=== PATIENT | female | born 2005 | race Caucasian/White ===

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

== ENCOUNTER 2025-03-09 16:46 | Emergency (ER) | payer OTHER, SELFPAY ==
[2025-03-09 16:46] VITALS: BP 137/83; PULSE 88; RESP 16; TEMP 36.8; O2SAT 98; BMI 31.6
--- NOTE | 2025-03-09 17:05 | US_ITS ---
PROCEDURE: US/Transvaginal Non-
--- NOTE | 2025-03-09 17:29 | EX.ED.DYSGE1 ---
HPI History of Present Illness Chief Complaint: Abd Pain Narrative Narrative: Chief complaint and HPI: 20-year-old female with past medical history of ovarian cyst, anxiety, depression presents for evaluation of right lower quadrant abdominal pain. Onset of symptoms for 2 weeks. Describes it as dull and throbbing. Denies any fever, chills, URI symptoms, shortness of breath, chest pain, abdominal pain, nausea, vomiting, dysuria, vaginal bleeding, diarrhea, constipation. She has a Nexplanon. States she is sexually active. Last intercourse a week ago. She has irregular periods however her last period was 2 weeks ago. Denies any concern for STI. Review of systems: See HPI Medications: As listed on the chart Allergies: As listed on the chart PFSH: Per chart Vital signs: As listed on the chart. Reviewed. Physical exam: Gen: A&O x3, NAD Head: Normocephalic, atraumatic Eyes: No sclera icterus, conjunctiva clear ENT: Moist mucous membranes CV: RRR, no murmurs Resp: Lungs CTA BL, no w/r/c GI: Abd soft, non-distended, non-tender, no r/r/g : No CVA tenderness Musc: Moves all extremities Skin: Warm, dry Psych: Cooperative, appropriate mood and affect PFSH [facility] Medical History Strep pharyngitis Kidney cysts Ovarian cyst Anxiety History of steroid therapy Migraine headache Injury of head and neck Smoker Sprain of left great toe Seasonal allergies Depression Asthma Home Medications ?Medication ?Instructions ?Recorded ?Last Taken ?Type albuterol sulfate 90 mcg/actuation 1 - 2 puff inhalation Q4H PRN PRN 11/17/21 Unknown Rx aerosol inhaler (Ventolin HFA) Wheezing #1 units hydroxyzine HCl 25 mg tablet 25 mg PO TID PRN anxiety 07/14/23 Unknown History epinephrine 0.3 mg/0.3 mL 0.3 mg (0.3 mL) IM .once PRN 09/28/23 Unknown Rx injection, auto-injector (EpiPen anaphylaxis #2 ea 2-Jd) albuterol sulfate 90 mcg/actuation 2 puff inhalation Q6H PRN 01/17/24 Unknown Rx aerosol inhaler shortness of breath or wheezing #8.5 grams bupropion HCl 150 mg 24 hr tablet, 150 mg PO QAM #30 tabs 11/09/24 Unknown Rx extended release (Wellbutrin XL) sertraline 100 mg tablet 100 mg PO QDAY #90 tabs 11/09/24 Unknown Rx budesonide-formoterol HFA 80 2 puff inhalation BID 02/17/25 Unknown History mcg-4.5 mcg/actuation aerosol inhaler (Symbicort) etonogestrel 68 mg subdermal 1 implant subdermal ONCE 02/17/25 Unknown History implant (Nexplanon) Allergy/AdvReac Type Severity Reaction Status Date / Time Food Allergies: Uncoded Allergy Anaphylaxis Verified 03/09/25 16:47 peanut (peanuts) Allergy Anaphylaxis Verified 03/09/25 16:47 tree nut Allergy Anaphylaxis Verified 03/09/25 16:47 Family History (Updated 11/09/24 @ 13:10 by Sylvia Alcantar) Father Asthma Other Anxiety CVA (cerebral vascular accident) Cancer Depression Diabetes Heart disease Suicide attempt Surgical History No pertinent past surgical history Social History household members: family Smoking Status: Current every day smoker tobacco type: e-cigarettes EXAM Physical Exam Const Vital Signs: 03/09/25 16:46 03/09/25 18:46 Temperature 98.3 F Temperature Source Oral Pulse Rate 88 80 Respiratory Rate 16 14 Blood Pressure 137/83 H 130/76 H Blood Pressure Mean 101 94 Pulse Ox 98 99 Oxygen Delivery Method Room Air Room Air MDM MDM MDM Narrative Medical decision making narrative: 20-year-old female with past medical history of ovarian cyst, anxiety, depression presents for evaluation of right lower quadrant abdominal pain. Onset of symptoms for 2 weeks. Describes it as dull and throbbing. Abdominal exam is benign. Differential diagnosis includes but is not limited to ovarian cyst, ovarian rupture, ovarian torsion, UTI, . Low suspicion for liver/biliary disease, pancreatitis, appendicitis, colitis. Toradol ordered for pain. Laboratory workup ordered including pelvic ultrasound. CBC without leukocytosis. Patient has a mild hemoconcentration of 15.5. Platelets unremarkable. CMP relatively unremarkable. Lipase unremarkable. UA negative for UTI and . No blood in the urine. Transvaginal ultrasound shows Doppler flow to both ovaries. Overall no acute abnormality. At this point in time, no clear etiology to explain patient's right lower quadrant abdominal pain. Given that her abdominal exam is benign, I do not think any emergent CT abdomen pelvis is needed at this time as well as lab work being unremarkable. This was discussed with the patient. She confirmed understanding and agrees. Patient is able to discharge home. Follow-up with PCP. Return precautions explained. Impression: 1. Right lower quadrant abdominal pain 2. History of ovarian cysts Lab Data Labs: Laboratory Results - last 24 hr 03/09/25 03/09/25 17:20 17:30 WBC 10.1 RBC 5.37 Hgb 15.5 H Hct 44.6 MCV 83.1 MCH 28.9 MCHC 34.8 RDW Std Deviation 34.8 L RDW Coeff of Rosalee 11.6 Plt Count 328 MPV 8.6 Immature Gran % (Auto) 0.400 Neut % (Auto) 62.9 Lymph % (Auto) 29.5 Hawkins % (Auto) 4.9 Eos % (Auto) 1.8 Baso % (Auto) 0.5 Absolute Neuts (auto) 6.4 Absolute Lymphs (auto) 2.98 Nucleated RBC % 0 Sodium 139 Potassium 4.0 Chloride 104 Carbon Dioxide 24.6 Anion Gap 11 BUN 13 Creatinine 0.93 Estim Creat Clear Calc 104.75 Est GFR (MDRD) Non-Af 90 BUN/Creatinine Ratio 13.5 Glucose 88 Calcium 9.8 Total Bilirubin 0.34 AST 26 ALT 28 Alkaline Phosphatase 107 H Total Protein 7.7 Albumin 4.4 Globulin 3.3 Albumin/Globulin Ratio 1.3 Lipase 35 Urine Color Straw Urine Clarity Clear Urine pH 7.0 Ur Specific Od[place] 1.010 Urine Protein Negative Urine Glucose (UA) Normal Urine Ketones Negative Urine Occult Blood Negative Urine Nitrite Negative Urine Bilirubin Negative Urine Urobilinogen Normal Ur Leukocyte Esterase Negative Urine RBC 0-5 SEEN Urine WBC 0-5 SEEN Ur Squamous Epith Cells 0 SEEN Urine Bacteria 0 SEEN Urine Mucus 0 SEEN Urine Test Negative Radiography Diagnostic Testing: Clinical Impression(s) from Imaging Studies Transvaginal US 03/09/25 17:05 IMPRESSION: Doppler flow to both ovaries. Overall, no acute abnormality. Reading [facility] Triage Chief Complaint: Abd Pain ED Provider: Waqas Dooley Dx/Rx/DC Orders Prescriptions: No Action hydroxyzine HCl 25 mg tablet 25 mg PO TID PRN (Reason: anxiety) albuterol sulfate 90 mcg/actuation HFA aerosol inhaler 2 puff inhalation Q6H PRN (Reason: shortness of breath or wheezing) Qty: 8.5 0RF sertraline 100 mg tablet 100 mg PO QDAY Qty: 90 1RF bupropion HCl [Wellbutrin XL] 150 mg tablet extended release 24 hr 150 mg PO QAM Qty: 30 1RF budesonide-formoterol [Symbicort] 80-4.5 mcg/actuation HFA aerosol inhaler 2 puff inhalation BID Nexplanon 68 mg implant 1 implant subdermal ONCE Rx Instructions: as a single dose albuterol sulfate [Ventolin HFA] 90 mcg/actuation HFA aerosol inhaler 1 - 2 puff inhalation Q4H PRN PRN (Reason: Wheezing) Qty: 1 0RF epinephrine [EpiPen 2-Jd] 0.3 mg/0.3 mL auto-injector 0.3 mg IM .once PRN (Reason: anaphylaxis) Qty: 2 3RF Primary Care Provider: Tono Bragg Referrals: Tono Bragg MD [Primary Care Provider, Pediatrics] Print Language: Czech
[2025-03-09 17:33] LABS: Mucous, Urine 0 SEEN /hpf (<or=2+); Squamous Epithelial Cells - UA 0 SEEN /hpf (5-10)
[2025-03-09 17:37] LABS: Color, Urine Straw (Yellow); Glucose, Dipstick Normal (Normal); Ketone-Dipstick Negative (Negative); Leukocyte Esterase-Dipstick Negative /ul (Negative); Nitrite-Dipstick Negative (Negative); Occult Blood-Urine Negative /ul (Negative); Protein-Dipstick Negative (Negative); Specific Gravity, Urine 1.010 (1.002-1.030); Urine Bilirubin Dipstick Negative (Negative)
[2025-03-09 17:41] LABS: Internal QC Validated? YES +Cl - CLEAR BKGD; Pregnancy, Urine Negative Negative; Record Kit Lot#,Urine Preg 980607
[2025-03-09 17:48] LABS: Hematocrit 44.6 % (37-47); Hemoglobin 15.5 g/dL (12.0-15.0); Immature Granulocytes Count 0.040 X10^3/uL (0.0-0.0); Mean Corp Hgb Conc 34.8 g/dL (32-36); Mean Corpuscular Volume 83.1 fL (81-99); Mean Platelet Vol. 8.6 fl (6.2-12.0); NRBC Flagged by Analyzer 0 % (0-5); Platelet Count 328 K/mm3 (150-450); RBC Distribution Width CV 11.6 % (11.6-14.6); RBC Distribution Width SD 34.8 fl (35.1-43.9); Red Blood Count 5.37 M/mm3 (4.2-5.4); White Blood Count 10.1 K/mm3 (4.4-11.0)
[2025-03-09 17:57] LABS: Lipase 35 U/L (13-75)
[2025-03-09 18:01] LABS: AST(SGOT) 26 U/L (<=31); Alanine Aminotransfer ALT/SGPT 28 U/L (<=34); Albumin, Serum 4.4 g/dL (3.5-5.0); Alkaline Phosphatase 107 U/L (35-104); Anion Gap 11 (5-15); BUN 13 mg/dL (4-19); BUN/Creat Ratio 13.5 RATIO (10-20); Calcium,Total 9.8 mg/dL (7.6-11.0); Carbon Dioxide 24.6 mmol/L (21.0-32.0); Chloride 104 mmol/L (98-108); Estimated Creatinine Clearance 104.75 ml/min (50-250); Globulin 3.3 g/dL (2.2-4.2); Glucose 88 mg/dL (70-99); Potassium 4.0 mmol/L (3.3-5.1)
[2025-03-09 18:26] LABS: Red Blood Cells-Urine 0-5 SEEN /hpf (0-5)
[2025-03-09 18:46] VITALS: BP 130/76; PULSE 80; RESP 14; O2SAT 99
== END 2025-03-09 20:15 | disposition home or self-care (01) ==
PROVIDERS: Emergency Provider Surgery; PCP Pediatrics; Visit Provider Surgery
DX: R10.31 Right lower quadrant pain (principal); F32.A Depression, unspecified; F41.9 Anxiety disorder, unspecified; Z79.899 Other long term (current) drug therapy; F17.290 Nicotine dependence, other tobacco product, uncomplicated
CPT/HCPCS: 76830; 80053; 81001; 81025; 83690; 85025; 96374; 99284; A4216